=== PATIENT | male | born 1995 | race American Indian/Alaskan Native ===

== ENCOUNTER 2023-08-15 18:04 | Emergency (ER) | payer OTHER ==
[2023-08-15 18:34] VITALS: RESP 18; BMI 32.8
[2023-08-15] MEDS ORDERED: KETOROLAC TROMETHAMINE 30 MG/1 ML VIAL ONE (19:54)
[2023-08-15] MEDS ORDERED: ACETAMINOPHEN 500 MG TABLET (FP) ONE (19:54)
[2023-08-15] MEDS: ACETAMINOPHEN 500 MG TABLET (FP) PO ONE (20:05)
[2023-08-15] MEDS: SODIUM CHLORIDE 0.9% 500 ML INFUS.BAG IV ONE ×3 (20:05→21:31)
[2023-08-15] MEDS: KETOROLAC TROMETHAMINE 30 MG/1 ML VIAL IVPUSH ONE (20:05)
[2023-08-15 20:18] LABS: BASO % 0.2 % (0-2.0); HEMOGLOBIN 14.2 GM/dL (11.7-16.9); MCH 29.1 pg (25.7-33.7); MCHC 34.7 g/dl (32.0-35.9); MEAN CELL VOLUME 83.8 fl (80-96); MEAN PLT VOLUME 8.3 fl (7.5-11.1); MONO % 13.8 % (3.8-10.2); PLATELET COUNT 387 10^3/uL (134-434); RDW 12.9 % (11.9-15.9); WHITE BLOOD COUNT 13.7 K/mm3 (4.0-10.0)
[2023-08-15 20:23] LABS: EPI CELLS 6 /uL (0-25.1); HYALINE CASTS 1 /uL (0-3.1); PH,URINE 5.5 (5.0-8.0); URINE APPEARANCE CLEAR; URINE BACTERIA 1 /uL (0-1359); URINE BILIRUBIN 1+ (NEGATIVE); URINE COLOR DK YELLOW; URINE GLUCOSE (UA) NEGATIVE (NEGATIVE); URINE KETONE 3+ (NEGATIVE); URINE LEUK ESTERASE NEGATIVE (NEGATIVE); URINE NITRITE NEGATIVE (NEGATIVE); URINE PROTEIN 2+ (NEGATIVE); URINE RBC 59 /uL (0-23.9); URINE WBC 24 /uL (0-25.8)
[2023-08-15 20:39] LABS: POTASSIUM 3.4 mmol/L (3.5-5.1)
[2023-08-15 20:41] LABS: CALCIUM 9.1 mg/dL (8.5-10.1)
[2023-08-15 20:42] LABS: ALBUMIN 3.8 g/dl (3.4-5.0); BLOOD UREA NITROGEN 9.3 mg/dL (7-18)
[2023-08-15 20:45] LABS: CREATININE 0.9 mg/dL (0.55-1.3)
[2023-08-15 20:47] LABS: BILIRUBIN,TOTAL 0.5 mg/dL (0.2-1); TOT PROT 8.5 g/dl (6.4-8.2)
[2023-08-15 21:15] VITALS: BP 117/75; PULSE 95; TEMP 99.1
== END 2023-08-15 22:34 | disposition home or self-care (01) ==
LOC: JER 18:04
PROC: 3E0303Z Introduction of Anti-inflammatory into Peripheral Vein, Open Approach (ICD-10-PCS; principal; 2023-08-15)
DX: R09.81 Nasal congestion (principal); R51.9 Headache, unspecified; J02.9 Acute pharyngitis, unspecified; R10.812 Left upper quadrant abdominal tenderness; R10.816 Epigastric abdominal tenderness; R11.0 Nausea; R05.9 Cough, unspecified; M79.10 Myalgia, unspecified site; R50.9 Fever, unspecified; R63.0 Anorexia; R07.9 Chest pain, unspecified; R00.0 Tachycardia, unspecified; B34.9 Viral infection, unspecified; Z20.822 Contact with and (suspected) exposure to COVID-19
CPT/HCPCS: 0241U-QW; 36415; 71046-TC-FY; 80053; 81003; 82550; 82553; 83605; 83690; 85025; 86308; 87086; 87651; 99284-25

== ENCOUNTER 2024-04-25 07:58 | Emergency (ER) | payer OTHER ==
[2024-04-25 08:12] VITALS: BP 127/79; PULSE 93; RESP 16; TEMP 97.7; BMI 31.2
[2024-04-25] MEDS ORDERED: MAG HYDROX/AL HYDROX/SIMETH 30 ML UNIT-DOSE CUP ONE (08:35)
[2024-04-25] MEDS ORDERED: FAMOTIDINE 20 MG TABLET ONE (08:35)
[2024-04-25] MEDS ORDERED: ONDANSETRON *ODT* 4 MG TABLET ONE (08:35)
[2024-04-25] MEDS: ONDANSETRON *ODT* 4 MG TABLET SL ONE (08:40)
[2024-04-25] MEDS: FAMOTIDINE 20 MG TABLET PO ONE (08:40)
[2024-04-25] MEDS: MAG HYDROX/AL HYDROX/SIMETH 30 ML UNIT-DOSE CUP PO ONE (08:40)
[2024-04-25] MEDS ORDERED: ACETAMINOPHEN 325 MG TABLET (FP) ONE (10:08)
[2024-04-25] MEDS: ACETAMINOPHEN 325 MG TABLET (FP) PO ONE (10:12)
== END 2024-04-25 11:10 | disposition home or self-care (01) ==
LOC: JER 07:58
DX: R10.12 Left upper quadrant pain (principal); R10.30 Lower abdominal pain, unspecified; R51.9 Headache, unspecified; K59.00 Constipation, unspecified; R11.0 Nausea
CPT/HCPCS: 99283-25; Q0162